=== PATIENT | female | born 1965 | race Caucasian/White ===

== ENCOUNTER 2017-05-24 20:22 | Emergency (ER) | payer OTHER ==
--- NOTE | 2017-05-24 20:31 | EDPHY ---
H & P Time Seen by Provider: 05/24/17 20:29 HPI/ROS: CHIEF COMPLAINT: Dysuria HISTORY OF PRESENT ILLNESS: 51-year-old female presents with 24 hr history of frequency, dysuria, and hematuria. No fever. No back pain. No nausea or vomiting. No significant past medical history. Last period 2 weeks ago and patient reports that she has steven menopausal. REVIEW OF SYSTEMS: Aside from elements discussed in the HPI, a comprehensive 10-point review of systems was reviewed and is negative. PAST MEDICAL HISTORY: Patient denies. Does have a history of urinary tract infection in the remote past SOCIAL HISTORY: Nonsmoker. Traveled here from [place] [facility] today. She does live in the [place] area. VITAL SIGNS: see nurse's notes. GENERAL: Well-developed, well-nourished, in no acute respiratory distress. Reports bladder discomfort. HEENT: Benign exam. LUNGS: Clear to auscultation bilaterally, no wheezes, rhonchi or rales. CARDIAC: Regular rate and rhythm, no rubs, murmurs or gallops. ABDOMEN: Soft, nontender, nondistended, bowel sounds normal. BACK: No CVA tenderness. No vertebral tenderness. EXTREMITIES: No edema, FROM. NEURO: Alert and oriented, grossly nonfocal. SKIN: Warm and dry, no rash. Constitutional: Initial Vital Signs Temperature (C) 36.6 C 05/24/17 20:29 Heart Rate 78 05/24/17 20:29 Respiratory Rate 18 05/24/17 20:29 Blood Pressure 122/62 H 05/24/17 20:29 O2 Sat (%) 95 05/24/17 20:29 O2 Delivery Mode Room Air Allergies/Adverse Reactions: No Known Allergies Allergy (Unverified 05/24/17 20:29) Home Medications: Medication Instructions Recorded Cephalexin [Keflex (RX)] 500 mg PO TID 6 Days cap 05/24/17 Phenazopyridine HCl [Pyridium] 200 mg PO TID #6 tab 05/24/17 Medical Decision Making ED Course/Re-evaluation: Urine consistent with hemorrhagic cystitis. Patient was placed on Keflex. Given Pyridium as well as ibuprofen in the emergency department. Counseled regarding importance of pushing fluids. Will follow up as needed. Differential Diagnosis: Differential diagnoses for the patient's symptom complex was considered including but not limited to hemorrhagic cystitis, cystitis, urinary tract infection, kidney stone, vaginitis, pyelonephritis. - Data Points Laboratory Results: 05/24/17 20:30 Urine Color RED Urine Appearance CLOUDY Urine pH 5.5 (5.0-7.5) Ur Specific Diamond <= 1.005 (1.002-1.030) Urine Protein 2+ H (NEGATIVE) Urine Ketones NEGATIVE (NEGATIVE) Urine Blood 3+ H (NEGATIVE) Urine Nitrate NEGATIVE (NEGATIVE) Urine Bilirubin NEGATIVE (NEGATIVE) Urine Urobilinogen 0.2 EU EU (0.2-1.0) Ur Leukocyte Esterase 2+ H (NEGATIVE) Urine RBC >182 /hpf H /hpf (0-3) Urine WBC 50-182 /hpf H /hpf (0-3) Ur Epithelial Cells 1+ /lpf /lpf (NONE-1+) Urine Bacteria 2+ /hpf H /hpf (NONE SEEN) Urine Glucose NEGATIVE (NEGATIVE) Medications Given: Discontinued Medications Cephalexin (Keflex 500 Mg Prepack#4) 1 btl TAKEHOME EDNOW ONE PRN Reason: Protocol Stop: 05/24/17 21:04 Last Admin: 05/24/17 21:07 Dose: 1 btl Ibuprofen (Motrin) 600 mg PO EDNOW ONE Stop: 05/24/17 21:05 Last Admin: 05/24/17 21:12 Dose: 600 mg Phenazopyridine HCl (Pyridium) 200 mg PO EDNOW ONE Stop: 05/24/17 21:04 Last Admin: 05/24/17 21:08 Dose: 200 mg Phenazopyridine HCl (Pyridium) 200 mg PO EDNOW ONE Stop: 05/24/17 21:05 Last Admin: 05/24/17 21:09 Dose: Not Given Departure - Departure Disposition: Home, Routine, Self-Care Clinical Impression: Urinary tract infection Qualifiers: Urinary tract infection type: acute cystitis Hematuria presence: with hematuria Qualified Code(s): N30.01 - Acute cystitis with hematuria Condition: Good Instructions: Urinary Tract Infection in Women (ED) Additional Instructions: Please take antibiotic as directed. Keflex 500 mg by mouth 3 times a day for the next 7 days. Drink plenty of fluid. Okay to take Pyridium as needed for urinary discomfort. Okay to take ibuprofen as needed for pain. If you're not improving as expected within the next 2-3 days, please follow up with her primary care physician. It is possible that the infection may be caused by a bacteria which is not adequately treated with the antibiotic which we have chosen to place you on. Referrals: Surekha Faustin MD [Primary Care Provider] - As per Instructions Prescriptions: Cephalexin [Keflex (RX)] 500 mg PO TID 6 Days cap Phenazopyridine HCl [Pyridium] 200 mg PO TID #6 tab
[2017-05-24 20:32] VITALS: BP 122/62; PULSE 78; RESP 18; TEMP 98; O2SAT 95
[2017-05-24] MEDS ORDERED: CEPHALEXIN 500MG PREPACK#4 BTL TAKEHOME ONE (21:03)
[2017-05-24] MEDS ORDERED: IBUPROFEN 600 MG TAB PO ONE (21:04)
[2017-05-24] MEDS ORDERED: PHENAZOPYRIDINE HCL 200 MG TAB PO ONE (21:04)
[2017-05-24] MEDS: PHENAZOPYRIDINE HCL 200 MG TAB PO ONE (21:08)
== END 2017-05-24 21:18 | disposition home or self-care (01) ==
LOC: CED 20:22
DX: N30.01 Acute cystitis with hematuria (principal); B96.89 Other specified bacterial agents as the cause of diseases classified elsewhere
CPT/HCPCS: 81003-PO; 81015-PO

== ENCOUNTER → 2018-02-17 | Outpatient (CLI) | payer OTHER | LOC: FIMAGING 08:23 | PROVIDERS: ATTEND Family Medicine | DX: Z12.31 Encounter for screening mammogram for malignant neoplasm of breast (principal); Z80.3 Family history of malignant neoplasm of breast ==